=== PATIENT | female | born 1990 | race Caucasian/White ===

== ENCOUNTER 2018-07-02 07:30 | Inpatient (IN) | payer MEDICAID ==
[2018-07-07] MEDS ORDERED: cefOXitin 2 GM Vial ONE (06:49)
[2018-07-07] MEDS ORDERED: Neostigmine Methylsulfate 1 MG/ML 5 ML Syringe ONE (07:17)
[2018-07-07] MEDS ORDERED: Glycopyrrolate 0.2 MG/ML 5 ML MDV ONE (07:17)
[2018-07-07] MEDS ORDERED: Dexamethasone 4 MG/ML SDV ONE (07:17)
[2018-07-07] MEDS ORDERED: Propofol 200 MG/20 ML SDV ONE (07:17)
[2018-07-07] MEDS ORDERED: Succinylcholine 200 MG/10 ML MDV ONE (07:17)
[2018-07-07] MEDS ORDERED: Rocuronium 50 MG/5 ML Vial ONE (07:17)
[2018-07-07] MEDS ORDERED: Ondansetron 4 MG/2 ML SDV ONE (07:17)
[2018-07-07] MEDS ORDERED: Acetaminophen 500 MG Tab PO ONE (07:30)
[2018-07-07] MEDS ORDERED: Gabapentin 300 MG Cap PO ONE (07:30)
[2018-07-07] MEDS ORDERED: Celecoxib 200 MG Cap PO ONE (07:30)
[2018-07-07] MEDS ORDERED: Scopolamine 1.5 MG Transdermal Patch TOP ONE (08:00)
[2018-07-07] MEDS ORDERED: Dextrose 5%-Lactated Ringers 1,000 ML IV SCH (08:00)
[2018-07-07] MEDS ORDERED: Albuterol/Ipratropium 3.0-0.5 MG/3 ML Neb Soln NEB ONE (09:00)
[2018-07-07] MEDS ORDERED: Lidocaine 2% 100 MG/5 ML Syringe IVPUSH ONE (09:00)
[2018-07-07] MEDS ORDERED: Lidocaine 0.4%/D5W 2 GM/500 ML BAG IV SCH (09:15)
[2018-07-07] MEDS ORDERED: Ketamine 500 MG/5 ML MDV IV SCH (09:15)
[2018-07-07] MEDS ORDERED: Ropivacaine 60 ML, Dexamethasone 8 MG, EPINEPHrine 0.4 MG, Sodium Chloride 0.9% 17.6 ML NERVRT SCH ×4 (09:15)
[2018-07-07] MEDS ORDERED: Ketamine 50 MG in Sodium Chloride 0.9% 49.5 ML IV SCH (09:15)
[2018-07-07] MEDS: cefOXitin 2 GM in Sodium Chloride 0.9% 50 ML IV ONE ×2 (09:53→12:43)
[2018-07-07] MEDS ORDERED: fentaNYL 250 MCG/5 ML SDV ONE (09:57)
[2018-07-07] MEDS ORDERED: Labetalol 20 MG/4 ML Syringe ONE (10:17)
[2018-07-07 11:16] LABS: HEMOGLOBIN A1C 8.3 % (4.5-6.2)
[2018-07-07] MEDS ORDERED: Insulin Lispro 100 Unit/ML 3 ML KwikPen SUBCUT ONE (12:00)
[2018-07-07] MEDS ORDERED: hydrOXYzine HCl 100 MG/2 ML SDV IM ONE (12:05)
[2018-07-07] MEDS: Dextrose 5%-Lactated Ringers 1,000 ML IV SCH ×2 (12:25→15:48)
[2018-07-07] MEDS ORDERED: Glucagon,Human Recombinant 1 MG Vial IM PRN (12:55)
[2018-07-07] MEDS ORDERED: Albuterol/Ipratropium 3.0-0.5 MG/3 ML Neb Soln INH PRN (12:55)
[2018-07-07] MEDS ORDERED: Metoclopramide 10 MG/2 ML SDV IVPUSH PRN (12:55)
[2018-07-07] MEDS ORDERED: diphenhydrAMINE 50 MG/ML SDV IVPUSH PRN (12:55)
[2018-07-07] MEDS ORDERED: Labetalol 20 MG/4 ML Syringe IVPUSH PRN (12:55)
[2018-07-07] MEDS ORDERED: 50% Dextrose in Water 50 ML Syringe IVPUSH PRN (12:55)
[2018-07-07] MEDS ORDERED: Ondansetron 4 MG/2 ML SDV IVPUSH PRN (12:55)
[2018-07-07] MEDS: hydrOXYzine HCl 100 MG/2 ML SDV IM PRN (13:08)
[2018-07-07] MEDS: Lactated Ringers 1,000 ML IV SCH (13:15)
[2018-07-07] MEDS: Acetaminophen Soln 650 MG/20.3 ML UD Cup PO SCH ×2 (14:05→19:31)
[2018-07-07] MEDS: Pantoprazole 40 MG Vial IVPUSH SCH (14:11)
[2018-07-07] MEDS: Gabapentin 250 MG/5 ML Solution ML 470 ML Bottle PO SCH ×2 (14:20→21:04)
[2018-07-07] MEDS: Albuterol/Ipratropium 3.0-0.5 MG/3 ML Neb Soln INH SCH ×2 (14:22→21:04)
[2018-07-07] MEDS: MVI, Adult with Vitamin K 10 ML, Thiamine 200 MG, Chromium/Copper/Mang/Selen/Zn 1 ML in... IV SCH ×4 (15:47)
[2018-07-07] MEDS: cefOXitin 2 GM in Sodium Chloride 0.9% 50 ML IV SCH ×2 (15:48→21:04)
[2018-07-07] MEDS: Insulin Lispro 100 Unit/ML 3 ML KwikPen SUBCUT PRN ×2 (16:15→21:08)
[2018-07-07] MEDS: Heparin Sodium 5,000 Units/ML Vial SUBCUT SCH (17:23)
[2018-07-07] MEDS ORDERED: Insulin Glargine,Human Rec. Analog 100 Units/ML 3 ML Pen SUBCUT ONE (21:00)
[2018-07-08] MEDS: Acetaminophen Soln 650 MG/20.3 ML UD Cup PO SCH ×4 (01:00→21:05)
[2018-07-08] MEDS ORDERED: Iohexol 647 MG/ML 50 ML SDV PO STA (03:00)
[2018-07-08] MEDS: cefOXitin 2 GM in Sodium Chloride 0.9% 50 ML IV SCH ×2 (04:03→10:00)
[2018-07-08] MEDS: Lactated Ringers 1,000 ML IV SCH (04:05)
--- NOTE | 2018-07-08 04:22 | CRLCR ---
INDICATION: Post op Tacos en Y gastric bypass TECHNIQUE: Modified upper GI 4 views PRELIMINARY IMPRESSION: 1. Contrast is seen in the distal esophagus and proximal small bowel with no definite contrast extravasation seen on submitted images. 2. Surgical drain is noted in the left upper quadrant. Dictated by Zuhair Maher MD @ 07/08/2018 4:21:03 AM FINAL REPORT: Agree with preliminary report. No additional findings. Dictated by: Marco Degroot MD @ 07/14/2018 10:07:22 (Electronically Signed)
[2018-07-08] MEDS: Insulin Lispro 100 Unit/ML 3 ML KwikPen SUBCUT PRN (05:18)
[2018-07-08] MEDS: Heparin Sodium 5,000 Units/ML Vial SUBCUT SCH ×2 (05:19→18:13)
[2018-07-08] MEDS: HYDROmorphone 2 MG Tab PO PRN ×5 (06:27→21:04)
[2018-07-08] MEDS: hydrOXYzine HCl 100 MG/2 ML SDV IM PRN (06:37)
[2018-07-08] MEDS ORDERED: hydrOXYzine HCl 25 MG Tab PO PRN (06:51)
[2018-07-08] MEDS ORDERED: Albuterol 8 GM Inhaler INH PRN (06:54)
[2018-07-08] MEDS ORDERED: Ondansetron 4 MG Tab.DIS PO PRN (06:54)
[2018-07-08] MEDS ORDERED: ALPRAZolam 0.5 MG Tab PO PRN (06:54)
[2018-07-08] MEDS ORDERED: Lactated Ringers 1,000 ML IV SCH (07:00)
[2018-07-08] MEDS ORDERED: Non-Formulary Medication 1 Each (Etonogestrel [Nexplanon] 68 MG) SQ SCH (07:00)
[2018-07-08] MEDS: Albuterol/Ipratropium 3.0-0.5 MG/3 ML Neb Soln INH SCH ×4 (07:29→21:06)
--- NOTE | 2018-07-08 08:10 | PN ---
DATE OF SERVICE: 07/08/2018 SUBJECTIVE: Marquita is postop day #1. Her upper GI this morning was normal. Blood sugars have been 233, 236, and 200; on oral intake, 270. Urine output 3300. She has been quite sleepy. Pain has not been managed. She would report pain, but then would fall right back to sleep. Currently, she just returned from the bathroom and is in quite a bit of pain. Remainder review of systems negative for any pertinent positives and negatives. OBJECTIVE: GENERAL: Marquita Whelan is a 28-year-old female. She is alert, orientated. VITAL SIGNS: TPR 97, 95, 20, blood pressure 122/73. HEENT: Negative. NECK: Supple. HEART: Regular rate and rhythm. LUNGS: Clear. ABDOMEN: Dressings dry and intact. ELIZABETH drain is draining a light pink clear drainage, 70 mL over the past 24 hours. EXTREMITIES: SCDs currently off. No peripheral edema. 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 Date of surgery, 07/07/2018. PLAN: 1. Step 2 gastric bypass diet without cereal. 2. Discontinue lidocaine. 3. Change IV to D5 LR at 100 mL/hour. 4. Discontinue D5 LR. 5. Lantus 10 units subcu b.i.d. 6. Atarax 25 mg p.o. q.4 hours p.r.n. pain. 7. Communication order, 3 med cups per hour, 1 every 20 minutes, record at bedside. 8. Work on good pulmonary function with incentive spirometer. 9. Zofran 4 mg ODT q.4 hours p.r.n. nausea, may have Dilaudid 2 mg 1 every 3 hours for severe pain, now covered with energy protocol medications including Atarax. 10.Home medications were started. Albuterol 1 puff inhalation daily p.r.n. shortness of breath, Xanax 1 mg p.o. b.i.d. p.r.n. anxiety, Abilify 10 mg p.o. daily, Adderall 20 mg p.o. t.i.d., Nexplanon. 11.We will evaluate p.r.n. Hina Norby, PA-C /[id number]
[2018-07-08] MEDS: Celecoxib 200 MG Cap PO SCH (08:32)
[2018-07-08] MEDS: Insulin Glargine,Human Rec. Analog 100 Units/ML 3 ML Pen SUBCUT SCH ×2 (08:34→21:07)
[2018-07-08] MEDS: Amphetamine/Dextroamphetamine Salts 10 MG Tab PO SCH ×3 (08:48→16:46)
[2018-07-08] MEDS: Gabapentin 250 MG/5 ML Solution ML 470 ML Bottle PO SCH ×3 (08:49→21:17)
[2018-07-08] MEDS ORDERED: ARIPiprazole 10 MG Tab PO SCH (09:00)
[2018-07-08] MEDS ORDERED: Venlafaxine 75 MG Cap.ER PO SCH (09:00)
[2018-07-08] MEDS: SCOPOLAMINE PATCH CHECK TOP SCH (09:52)
[2018-07-08] MEDS: Pantoprazole 40 MG Vial IVPUSH SCH (13:23)
[2018-07-08] MEDS: MVI, Adult with Vitamin K 10 ML, Thiamine 200 MG, Chromium/Copper/Mang/Selen/Zn 1 ML in... IV SCH ×4 (16:46)
[2018-07-08] MEDS: ARIPiprazole 10 MG Tab PO SCH (21:06)
[2018-07-08] MEDS: Venlafaxine 75 MG Cap.ER PO SCH (21:06)
[2018-07-09] MEDS: HYDROmorphone 2 MG Tab PO PRN ×5 (02:44→23:45)
[2018-07-09] MEDS: Acetaminophen Soln 650 MG/20.3 ML UD Cup PO SCH ×4 (02:44→20:04)
[2018-07-09] MEDS: Heparin Sodium 5,000 Units/ML Vial SUBCUT SCH ×2 (05:53→17:49)
[2018-07-09] MEDS: Albuterol/Ipratropium 3.0-0.5 MG/3 ML Neb Soln INH SCH ×4 (07:09→20:05)
[2018-07-09] MEDS ORDERED: Calcium Carbonate 500 MG Tab.Chew PO PRN (07:16)
[2018-07-09] MEDS: Amphetamine/Dextroamphetamine Salts 10 MG Tab PO SCH ×3 (08:01→16:24)
[2018-07-09] MEDS: Pantoprazole 40 MG Tab.CR PO SCH (08:02)
--- NOTE | 2018-07-09 08:26 | PN ---
DATE OF SERVICE: 07/09/2018 SUBJECTIVE: Marquita's blood sugars had been 116 and 98. She states that she took Celebrex yesterday morning and had some mid epigastric pain for a couple hours afterwards. She states that she was sitting in the chair for 2 hours after she took the Celebrex. Oral intake 1500. Urine output is 1550. ELIZABETH drain put out 112 mL of a light red drainage. REVIEW OF SYSTEMS: Remainder of review of systems negative for any pertinent positives and negatives. OBJECTIVE: GENERAL: Marquita is a 28-year-old female. VITAL SIGNS: TPR is 98.4, 69, and 16. Blood pressure 98/43. HEENT: Negative. NECK: Supple. HEART: Regular rate and rhythm. LUNGS: Clear. ABDOMEN: Incisions look good. Sutures intact. ELIZABETH drain intact, draining as light pink drainage. Abdominal binder has been on. EXTREMITIES: Without peripheral edema. ASSESSMENT: Laparoscopic gastric bypass surgery, liver biopsy, repair of diaphragmatic hernia, excision of mediastinal lipoma and partial gastrectomy for morbid obesity, hepatomegaly, diaphragmatic hernia, mediastinal lipoma, excision of ischemic stomach after formation of the gastric pouch. Date of surgery 07/07/2018. PLAN: 1. Discontinue Lantus. 2. Saline lock IV. 3. Discontinue IV Protonix. 4. Protonix 40 mg p.o. give before Celebrex and give Celebrex with food. 5. Good pulmonary toilet. 6. We will evaluate p.r.n. or in a.m. Hina Carrion PA-C /[id number]
[2018-07-09] MEDS ORDERED: Cyanocobalamin (Vitamin B12) 1,000 MCG/ML SDV IM ONE (09:00)
[2018-07-09] MEDS: SCOPOLAMINE PATCH CHECK TOP SCH (10:03)
[2018-07-09] MEDS: Celecoxib 200 MG Cap PO SCH (10:04)
[2018-07-09] MEDS: Gabapentin 250 MG/5 ML Solution ML 470 ML Bottle PO SCH ×3 (10:13→20:07)
[2018-07-09] MEDS: ARIPiprazole 10 MG Tab PO SCH (20:05)
[2018-07-09] MEDS: Venlafaxine 75 MG Cap.ER PO SCH (20:05)
[2018-07-10] MEDS: Acetaminophen Soln 650 MG/20.3 ML UD Cup PO SCH ×2 (03:35→08:29)
[2018-07-10] MEDS: HYDROmorphone 2 MG Tab PO PRN (03:35)
[2018-07-10] MEDS: Heparin Sodium 5,000 Units/ML Vial SUBCUT SCH (05:53)
[2018-07-10] MEDS: Albuterol/Ipratropium 3.0-0.5 MG/3 ML Neb Soln INH SCH (07:29)
[2018-07-10] MEDS: Pantoprazole 40 MG Tab.CR PO SCH (08:28)
[2018-07-10] MEDS: Amphetamine/Dextroamphetamine Salts 10 MG Tab PO SCH (08:28)
[2018-07-10] MEDS: Celecoxib 200 MG Cap PO SCH (08:29)
[2018-07-10] MEDS: Gabapentin 250 MG/5 ML Solution ML 470 ML Bottle PO SCH (09:06)
--- NOTE | 2018-07-10 09:41 | DISCH ---
ADMISSION DIAGNOSES: Morbid obesity, BMI 49; uncontrolled type 2 diabetes; attention deficit disorder; bipolar I; history of nicotine addiction recently quit; polycystic ovary syndrome; post-traumatic stress disorder; and marijuana use in remission. DISCHARGE DIAGNOSES: Laparoscopic gastric bypass surgery; liver biopsy; repair of diaphragmatic hernia; excision of mediastinal lipoma and partial gastrectomy for morbid obesity, hepatomegaly, diaphragmatic hernia, mediastinal lipoma, excision of ischemic stomach, over-formation of gastric pouch. Date of surgery, 07/07/2018. HISTORY: Marquita Whelan is a 28-year-old female with longstanding history of morbid obesity and increasing comorbidities. After preoperative evaluation and discussion of possible risks and possible complications, she wished to proceed with surgical procedure. HOSPITAL COURSE: Marquita had her surgery on 07/07/2018. She had no operative complications. On postoperative day #1, her upper GI was normal. She was started on a step- 2 gastric bypass diet without cereal. She was given Lantus 10 units subcu b.i.d. and started on Januvia for her diabetes. On postoperative day #2, her blood sugars decreased. Her Lantus was discontinued. She continued on Januvia. She was refused to take the Celebrex. She took at 1 time and states that it gave her heartburn and refused to take it even with the omeprazole. On postoperative day 3, she was ready to be discharged to home. Her last blood sugar 98, 100, and 104. She received dietary instructions. Activity was good. Oral intake 890 and urine output was 1700. ELIZABETH drains put out 150 mL for past 24 hours of a light pink serosanguineous drainage. PHYSICAL EXAMINATION: HEENT: Negative. NECK: Supple. HEART: Regular rate and rhythm. LUNGS: Clear. ABDOMEN: Sutures intact. Incisions look good. ELIZABETH drain at time of rounds was in place, but will be removed prior to discharge. Abdominal binder is currently off. EXTREMITIES: Without peripheral edema. DISPOSITION: Discharged to home. CONDITION: Stable and improving. FOLLOWUP APPOINTMENT: Hina Carrion PA-C, 07/17/2018 at 10:00 a.m. HOME MEDICATIONS: 1. Tylenol 650 mg oral q.6 hours for pain. 2. Zofran ODT 4 mg q.4 hours p.r.n. nausea. 3. Xanax 1 mg b.i.d. for anxiety. 4. Abilify 10 mg oral daily. 5. Ventolin inhaler 1 puff daily p.r.n. allergies. 6. Celebrex 200 mg daily. 7. Adderall 20 for 14 days. She had this prescription prior to surgery. Recommend that she does take this medication and to take it with food and omeprazole. Adderall 20 mg p.o. t.i.d., she has Nexplanon, inhaler, and Zofran ODT 4 mg q.4 hours p.r.n. nausea, vomiting #30, Effexor XR 75 mg oral daily. Discontinue taking Basaglar insulin and Humalog insulin. DIET: Step 2 gastric bypass diet with no cereal until 07/22/2018. ACTIVITY: No lifting over 10 pounds for 2 weeks. Other activity, walk at least 6 times daily inside your home. Driving, do not drive for 1 week. Shower/bathing, may shower. DISCHARGE INSTRUCTIONS: Notify provider if any fever, increased pain, swelling, redness, drainage, nausea, or vomiting. Keep site clean and dry. Wear abdominal binder for 2 weeks and as tolerated. SPECIAL INSTRUCTIONS: 1. Check blood sugars 4 times a day and bring to clinic appointments. 2. Keep a record of what you are eating and drinking. 3. Use incentive spirometer 10 times every hour while awake. 4. Bring record of food diary and blood sugars to clinic appointment.
--- NOTE | 2018-07-13 15:12 | OR ---
DATE OF PROCEDURE: 07/07/2018 PREOPERATIVE DIAGNOSIS: Morbid obesity. POSTOPERATIVE DIAGNOSES: 1. Morbid obesity. 2. Marked hepatomegaly. 3. Paraesophageal diaphragmatic hernia. 4. Mediastinal lipoma. 5. Area of gastric ischemia, status post formation of gastric pouch. OPERATIVE PROCEDURES: 1. Laparoscopic Tacos-en-Y gastric bypass along with gastroenterostomy (45433). 2. Jonny-Cut needle liver biopsy (89173). 3. Repair of paraesophageal diaphragmatic hernia (00652). 4. Excision of mediastinal lipoma (15739). 5. Resection of ischemic portion of the stomach, status post formation of gastric pouch (88085). ANESTHESIA: General. HEAD LINEMAN: CESAR Higuera. INDICATIONS FOR PROCEDURE: This is a 28-year-old female presenting with longstanding morbid obesity and increasingly significant comorbidities. After preoperative evaluation and discussion, she wished to proceed with a gastric bypass procedure. Potential risks of the procedure including bleeding, infection, leaks from various GI tract closures, problems with bowel obstruction over time, as well as possibility of cardiopulmonary, septic, or hemorrhagic complications leading to were discussed, and the patient wishes to proceed. DETAILS OF PROCEDURE: The patient was taken to the operating room and placed in a supine position. After general endotracheal anesthesia was induced, she was converted to a lithotomy position. Stovall catheter was inserted along with gastrointestinal balloon catheter, and the abdomen prepped and draped. At 15 cm inferior and 5 cm left of xiphoid process, a transverse incision was made and the peritoneal cavity entered under direct vision with an Optiview trocar. The peritoneal cavity was inflated to 15 mmHg pressure with CO2. Laparoscope was re-inserted. No underlying trocar insertion site injuries were seen. Following this, 5 additional trocars were placed across the upper and mid abdomen. General exploration was undertaken. The patient was noted to have marked hepatomegaly with liver volume being roughly 2 to 3 times normal and grossly fatty infiltrated. Jonny-Cut needle biopsies were obtained from the left lobe of the liver. Minimal bleeding from the biopsy sites was controlled with electrocautery. The omentum was then divided in the midline up to the level of the transverse colon. This allowed identification of small bowel to ligament of Treitz. Small bowel was then traced out 200 cm distal to that point, where it was divided transversely with a PADMAJA stapler. The small bowel was then traced out an additional 200 cm, where the [id number] enteroenterostomy was accomplished with an internal firing of the Endo-PADMAJA 60 mm stapler. Common opening was then closed transversely with the same stapler and the angles anastomosed and mesenteric defect approximated with some 0 Ethibond stitch along with 4 mL of fibrin sealant. The divided end of the Tacos limb was then from the mesentery for a few centimeters, which allowed an antecolic position of the Tacos limb up to the level of the gastroesophageal junction without tension. The liver was then retracted anteriorly. The patient was noted to have a moderate-sized paraesophageal diaphragmatic hernia with prolapse of a portion of gastric fundus and some perigastric fat in a plane anterior to the course of the esophagus. This was reduced, and peritoneum overlying the hernia was divided and reflected downward. During the course of the dissection, a roughly ping-pong ball-sized mediastinal lipoma was encountered, which was then excised as well, to facilitate closure of the diaphragmatic hernia, which was then accomplished with 0 Ethibond sutures reinforced with PTFE pledgets. At this point, the gastrointestinal balloon catheter was inflated to 15 mL and pulled up snugly against the EG junction. The gastric wall over the apex balloon was then marked with electrocautery, and balloon catheter deflated and pulled up from the esophagus. The lesser omental tissue adjacent to the gastric cardia was then incised, allowing dissection behind the stomach at that level. Pouch formation was initiated with a transverse firing of the PADMAJA stapler at the level of the cauterized loretta on the gastric cardia. This was then completed with additional firings of the PADMAJA stapler up to and through the angle of His. Upon completion of the pouch, both staple lines were noted to be intact. Inspection of the gastric pouch at this point showed an area of ischemia in the distal aspect of the gastric pouch. This was felt to be best treated by initial resection, which was then accomplished with a PADMAJA stapler as well, and gastric specimen was then sent for histologic evaluation. The anvil of the 25 mm EEA stapler was then attached to a [place] sump-type tube. The latter was taken out through a small opening in the gastric pouch, allowing the anvil likewise to be pulled down to within the gastric pouch. The divided end of the Tacos limb was then opened, and the main body of the EEA stapler was passed several centimeters into the lumen of the small bowel, brought up the anvil and united with it, thus creating the gastrojejunostomy. Upon removal of the stapler, double donuts of mucosa were noted within it. The small bowel was closed off with a vascular staple line. Gastrojejunostomy was reinforced with some 3-0 Vicryl seromuscular stitch, along with fibrin sealant. Leak test was accomplished with injection of 120 mL of air in the gastric pouch while submerged in the cefoxitin-containing saline solution. No leaks were identified. Two Jorge-Joe drains were then placed adjacent to the gastrojejunostomy and taken out through subcostal trocar sites. With no further problems noted, trocars were removed and the peritoneal cavity deflated. The incision was closed with some 4-0 Vicryl skin stitch, which was also used to fix the drains. The patient was taken to the recovery room in satisfactory condition. There were no evident complications. Arcenio Ball MD /[id number]
== END 2018-07-10 10:30 | disposition home or self-care (01) | DRG 621 ==
LOC: EDSTATUS 07-07 07:30 → EEVIPCON 07-07 07:35 → JP.SDS 07-07 07:35 → JP.SDSSCHI 07-07 07:35 → JP.MS 07-07 11:20
PROVIDERS: ADMIT Surgery; ATTEND Surgery
PROC: 0D164ZA Bypass Stomach to Jejunum, Percutaneous Endoscopic Approach (ICD-10-PCS; principal; 2018-07-07)
PROC: 0FB24ZX Excision of Left Lobe Liver, Percutaneous Endoscopic Approach, Diagnostic (ICD-10-PCS; 2018-07-07)
PROC: 0BQT4ZZ Repair Diaphragm, Percutaneous Endoscopic Approach (ICD-10-PCS; 2018-07-07)
PROC: 0WBC4ZX Excision of Mediastinum, Percutaneous Endoscopic Approach, Diagnostic (ICD-10-PCS; 2018-07-07)
PROC: 0DB64ZX Excision of Stomach, Percutaneous Endoscopic Approach, Diagnostic (ICD-10-PCS; 2018-07-07)
DX: E66.01 Morbid (severe) obesity due to excess calories (principal); Z68.42 Body mass index [BMI] 45.0-49.9, adult; R16.0 Hepatomegaly, not elsewhere classified; D17.4 Benign lipomatous neoplasm of intrathoracic organs; K44.9 Diaphragmatic hernia without obstruction or gangrene; K31.89 Other diseases of stomach and duodenum; K76.0 Fatty (change of) liver, not elsewhere classified; E11.65 Type 2 diabetes mellitus with hyperglycemia; Z79.4 Long term (current) use of insulin; F98.8 Other specified behavioral and emotional disorders with onset usually occurring in childhood and adolescence; E28.2 Polycystic ovarian syndrome; F43.10 Post-traumatic stress disorder, unspecified; F31.9 Bipolar disorder, unspecified; Z88.8 Allergy status to other drugs, medicaments and biological substances
CPT/HCPCS: 36415; 74240; 80053; 82962; 83036; 83735; 84100; 85027; 86850; 86900; 86901; 88304; 88305; 88307; 88313; 94640; A9270-GY; C9113; J0171; J0330; J0694; J1100; J1644; J1815; J1815-GY; J2001; J2405; J2704; J2710; J2795; J3010; J3410; J3411; J3420; J3490; J7030; J7042; J7050; J7120; J7620-GY; Q9967

== ENCOUNTER 2018-07-11 14:26 | Emergency (ER) | payer MEDICAID ==
--- NOTE | 2018-07-11 15:43 | EDM.PDOC ---
ED HPI GENERAL MEDICAL PROBLEM - General Chief Complaint: Abdominal Pain Stated Complaint: ABDOMINAL PIN Time Seen by Provider: 07/11/18 15:00 - History of Present Illness INITIAL COMMENTS - FREE TEXT/NARRATIVE: 28 yo recently post op from recent david procedure who presents with abdominal pain Has been present around her incisions since surgery No radiation Reports apap not helping No fever Tolerating liquid diet Requesting stronger pain medication - Related Data Allergies Allergy/AdvReac Type Severity Reaction Status Date / Time metformin Allergy Other Verified 07/11/18 15:07 NSAIDS (Non-Steroidal Allergy Abdominal Verified 07/11/18 15:07 Anti-Inflamma Pain blue cheese Allergy Rash Uncoded 07/11/18 15:07 Home Meds: Home Meds ALPRAZolam [Xanax] 1 mg PO BID PRN 07/03/18 [History] ARIPiprazole [Abilify] 10 mg PO DAILY 07/03/18 [History] Dextroamphetamine/Amphetamine [Adderall 20 mg Tablet] 20 mg PO TID 07/03/18 [ History] Etonogestrel [Nexplanon] 68 mg SQ ASDIRECTED 07/03/18 [History] Albuterol [Ventolin HFA] 1 puff INH DAILY PRN 07/07/18 [History] Venlafaxine [Effexor XR] 75 mg PO DAILY 07/07/18 [History] Acetaminophen [Tylenol] 650 mg PO Q6H cup 07/10/18 [Rx] Ondansetron [Zofran ODT] 4 mg PO Q4H PRN #30 tab.dis 07/10/18 [Rx] oxyCODONE 5 mg PO ASDIRECTED #4 tab 07/11/18 [Rx] Past Medical History HEENT History: Reports: Allergic Rhinitis Respiratory History: Reports: Bronchitis, Recurrent Genitourinary History: Reports: UTI, Recurrent TOUCH UP EDGER History: Reports: Polycystic Ovaries Musculoskeletal History: Reports: Fracture Psychiatric History: Reports: ADHD, Anxiety, Bipolar, Depression Endocrine/Metabolic History: Reports: Diabetes, Type II, Obesity/BMI 30+ - Infectious Disease History Infectious Disease History: Reports: Chicken Pox - Past Surgical History HEENT Surgical History: Reports: Oral Surgery Respiratory Surgical History: Reports: None Female Surgical History: Reports: None Endocrine Surgical History: Reports: None Musculoskeletal Surgical History: Reports: None Social & Family History - Tobacco Use Smoking Status *Q: Never Smoker - Caffeine Use Caffeine Use: Reports: Coffee ED ROS GENERAL - Review of Systems Review Of Systems: See Below Constitutional: Reports: No Symptoms HEENT: Reports: No Symptoms Respiratory: Reports: No Symptoms Cardiovascular: Reports: No Symptoms Endocrine: Reports: No Symptoms GI/Abdominal: Reports: Abdominal Pain : Reports: No Symptoms Musculoskeletal: Reports: No Symptoms Skin: Reports: No Symptoms Neurological: Reports: No Symptoms Psychiatric: Reports: No Symptoms Hematologic/Lymphatic: Reports: No Symptoms Immunologic: Reports: No Symptoms ED EXAM, GI/ABD - Physical Exam Exam: See Below Exam Limited By: No Limitations General Appearance: Alert, No Apparent Distress Ears: Normal External Exam Nose: Normal Inspection Throat/Mouth: Normal Inspection Head: Atraumatic, Normocephalic Neck: Normal Inspection Respiratory/Chest: No Respiratory Distress, Lungs Clear Cardiovascular: Normal Peripheral Pulses GI/Abdominal Exam: Normal Bowel Sounds, Soft, Tender (tender around lap ports), Other (incisions well healing) Back Exam: Normal Inspection Extremities: Normal Inspection Neurological: Alert, Oriented Psychiatric: Normal Affect Skin Exam: Warm, Dry Course - Vital Signs Last Recorded V/S: Last Vital Signs Temp 36.6 C 07/11/18 15:12 Pulse 84 07/11/18 15:12 Resp 12 07/11/18 15:12 BP 144/73 H 07/11/18 15:12 Pulse Ox 97 07/11/18 15:12 - Orders/Labs/Meds Meds: Medications Discontinued Medications Generic Name Dose Route Start Last Admin Trade Name Tegan PRN Reason Stop Dose Admin Oxycodone HCl 5 mg 07/11/18 15:52 07/11/18 15:56 Oxycodone PO 07/11/18 15:53 5 mg ONETIME ONE Administration - Re-Assessments/Exams Free Text/Narrative Re-Assessment/Exam: 28 yo recent post op from lap david requesting oxycodone for incisional abdominal pain No new symptoms Only tender around lap sites, normal vitals Written for short script of oxycodone until she can f/u with surgeon this week 07/12/18 19:05 Departure - Departure Time of Disposition: 15:42 Disposition: Home, Self-Care 01 Clinical Impression: Epigastric pain - Discharge Information *PRESCRIPTION DRUG MONITORING PROGRAM REVIEWED*: No *COPY OF PRESCRIPTION DRUG MONITORING REPORT IN PATIENT CEFERINO: No Prescriptions: oxyCODONE 5 mg PO ASDIRECTED #4 tab Instructions: Abdominal Pain, Adult, [id number] Referrals: Tunde Granados MD [Primary Care Provider] - Forms: ED Department Discharge Additional Instructions: Please follow up with Dr Ball's office as planned, call sooner if you are having persistent pain
[2018-07-11] MEDS ORDERED: oxyCODONE 5 MG Tab PO ONE (15:52)
== END 2018-07-11 15:57 | disposition home or self-care (01) ==
LOC: JP.ED 14:26
DX: R10.13 Epigastric pain (principal); F32.9 Major depressive disorder, single episode, unspecified; E11.9 Type 2 diabetes mellitus without complications; Z79.899 Other long term (current) drug therapy; Z88.8 Allergy status to other drugs, medicaments and biological substances; Z91.018 Allergy to other foods
CPT/HCPCS: 99283; A9270

== ENCOUNTER 2018-07-17 18:40 | Inpatient (IN) | payer MEDICAID ==
[2018-07-17] MEDS ORDERED: fentaNYL 100 MCG/2 ML SDV IVPUSH ONE (19:21)
[2018-07-17] MEDS ORDERED: Ondansetron 4 MG/2 ML SDV IVPUSH ONE (19:22)
[2018-07-17] MEDS ORDERED: Sodium Chloride 0.9% 10 ML Syringe FLUSH PRN (19:22)
[2018-07-17] MEDS ORDERED: Lactated Ringers 1,000 ML IV ONE (19:22)
--- NOTE | 2018-07-17 19:35 | EDM.PDOC ---
ED HPI GENERAL MEDICAL PROBLEM - General Chief Complaint: Gastrointestinal Problem Stated Complaint: SURGERY ON THE 10TH RNY Time Seen by Provider: 07/17/18 19:15 Source of Information: Reports: Patient, RN Notes Reviewed History Limitations: Reports: No Limitations - History of Present Illness INITIAL COMMENTS - FREE TEXT/NARRATIVE: 28-year-old female presents emergency department today complaint of abdominal pain, she is postop day 20 from gastric bypass Tacos-en-Y states she is doing well postoperatively and then today sudden onset epigastric pain nausea and vomiting she's unable to keep any medications down or liquids, denies any fevers is still passing gas Abdominal Pain Score (Numeric/FACES): 8 - Related Data Allergies Allergy/AdvReac Type Severity Reaction Status Date / Time metformin Allergy Other Verified 07/17/18 18:57 NSAIDS (Non-Steroidal Allergy Abdominal Verified 07/17/18 18:57 Anti-Inflamma Pain blue cheese Allergy Rash Uncoded 07/17/18 18:57 Home Meds: Home Meds ALPRAZolam [Xanax] 1 mg PO BID PRN 07/03/18 [History] ARIPiprazole [Abilify] 10 mg PO DAILY 07/03/18 [History] Dextroamphetamine/Amphetamine [Adderall 20 mg Tablet] 20 mg PO TID 07/03/18 [ History] Etonogestrel [Nexplanon] 68 mg SQ ASDIRECTED 07/03/18 [History] Albuterol [Ventolin HFA] 1 puff INH DAILY PRN 07/07/18 [History] Venlafaxine [Effexor XR] 75 mg PO DAILY 07/07/18 [History] Acetaminophen [Tylenol] 650 mg PO Q6H cup 07/10/18 [Rx] Ondansetron [Zofran ODT] 4 mg PO Q4H PRN #30 tab.dis 07/10/18 [Rx] Past Medical History HEENT History: Reports: Allergic Rhinitis, Impaired Vision Respiratory History: Reports: Bronchitis, Recurrent Genitourinary History: Reports: UTI, Recurrent 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: 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 Musculoskeletal History: Reports: Fracture Neurological History: Reports: Seizure Psychiatric History: Reports: ADHD, Anxiety, Bipolar, Depression, Psych Hospitalization(s), PTSD, Suicide Attempt Endocrine/Metabolic History: Reports: Diabetes, Type II, Obesity/BMI 30+ - Infectious Disease History Infectious Disease History: Reports: Chicken Pox - Past Surgical History HEENT Surgical History: Reports: Oral Surgery Respiratory Surgical History: Reports: None GI Surgical History: Reports: Bariatric Procedure, Hernia Repair/Other Female Surgical History: Reports: None Endocrine Surgical History: Reports: None Musculoskeletal Surgical History: Reports: None Social & Family History - Tobacco Use Smoking Status *Q: Former Smoker Used Tobacco, but Quit: Yes Month/Year Tobacco Last Used: april 2018 - Caffeine Use Caffeine Use: Reports: None ED ROS GENERAL - Review of Systems Review Of Systems: See Below Constitutional: Denies: Fever, Chills HEENT: Reports: No Symptoms Respiratory: Reports: No Symptoms Cardiovascular: Reports: No Symptoms GI/Abdominal: Reports: Abdominal Pain, Flatus, Nausea, Vomiting. Denies: Constipation, Diarrhea : Reports: No Symptoms Musculoskeletal: Reports: No Symptoms Skin: Reports: No Symptoms Neurological: Reports: Paresthesia ED EXAM, GI/ABD - Physical Exam Exam: See Below Exam Limited By: No Limitations General Appearance: Alert, Mild Distress Head: Atraumatic, Normocephalic Neck: Normal Inspection, Supple, Non-Tender, Full Range of Motion Respiratory/Chest: No Respiratory Distress, Lungs Clear, Normal Breath Sounds, No Accessory Muscle Use Cardiovascular: Regular Rate, Rhythm, No Murmur GI/Abdominal Exam: Normal Bowel Sounds, Soft, No Distention, Tender (Epigastric region) Course - Vital Signs Last Recorded V/S: Last Vital Signs Temp 98.1 F 07/17/18 19:01 Pulse 85 07/17/18 19:01 Resp 18 07/17/18 19:01 BP 137/83 07/17/18 19:01 Pulse Ox 94 L 07/17/18 19:01 - Orders/Labs/Meds Orders: Active Orders 24 hr Category Date Time Status Peripheral IV Care [RC] . DIRECTED Care 07/17/18 19:22 Active Lactated Ringers [Ringers, Lactated] 1,000 ml Med 07/17/18 19:22 Active IV BOLUS Sodium Chloride 0.9% [Saline Flush] Med 07/17/18 19:22 Active 10 ml FLUSH ASDIRECTED PRN Peripheral IV Insertion Adult [OM.PC] Urgent Oth 07/17/18 19:22 Ordered Medication Orders Lactated Ringer's (Ringers, Lactated) 1,000 mls @ 999 mls/hr IV BOLUS ONE Stop: 07/17/18 20:22 Last Admin: 07/17/18 19:47 Dose: 999 mls/hr Sodium Chloride (Saline Flush) 10 ml FLUSH ASDIRECTED PRN PRN Reason: Keep Vein Open Last Admin: 07/17/18 19:47 Dose: 10 ml Labs: Laboratory Tests 07/17/18 07/17/18 07/17/18 Range/Units 19:22 19:22 19:22 WBC 7.6 (4.5-11.0) K/uL RBC 4.78 (3.30-5.50) M/uL Hgb 12.2 (12.0-15.0) g/dL Hct 38.5 (36.0-48.0) % MCV 81 (80-98) fL MCH 26 L (27-31) pg MCHC 32 (32-36) % Plt Count 197 (150-400) K/uL Neut % (Auto) 73 H (36-66) % Lymph % (Auto) 17 L (24-44) % [place] % (Auto) 10 H (2-6) % Eos % (Auto) 1 L (2-4) % Baso % (Auto) 0 (0-1) % Sodium 140 (140-148) mmol/L Potassium 4.0 (3.6-5.2) mmol/L Chloride 105 (100-108) mmol/L Carbon Dioxide 25 (21-32) mmol/L Anion Gap 10.5 (5.0-14.0) mmol/L BUN 10 (7-18) mg/dL Creatinine 0.9 (0.6-1.0) mg/dL Est Cr Clr Drug Dosing 98.12 mL/min Estimated GFR (MDRD) > 60 (>60) Glucose 141 H (74-106) mg/dL Lactic Acid 1.1 (0.4-2.0) mmol/L Calcium 9.1 (8.5-10.1) mg/dL Total Bilirubin 0.3 D (0.2-1.0) mg/dL AST 15 (15-37) U/L ALT 31 (12-78) U/L Alkaline Phosphatase 68 (46-116) U/L Total Protein 7.2 (6.4-8.2) g/dL Albumin 3.2 L (3.4-5.0) g/dL Globulin 4.0 H (2.3-3.5) g/dL Albumin/Globulin Ratio 0.8 L (1.2-2.2) Lipase 185 (73-393) U/L Urine Color Urine Appearance Urine pH (4.5-8.0) Ur Specific [place] (1.008-1.030) Urine Protein (NEGATIVE) mg/dL Urine Glucose (UA) (NEGATIVE) mg/dL Urine Ketones (NEGATIVE) mg/dL Urine Occult Blood (NEGATIVE) Urine Nitrite (NEGATIVE) Urine Bilirubin (NEGATIVE) Urine Urobilinogen (NORMAL) mg/dL Ur Leukocyte Esterase (NEGATIVE) Urine RBC (0-5) Urine WBC (0-5) Ur Epithelial Cells Amorphous Sediment Urine Bacteria Urine Mucus Urine HCG, Qual 07/17/18 07/17/18 Range/Units 19:51 19:51 WBC (4.5-11.0) K/uL RBC (3.30-5.50) M/uL Hgb (12.0-15.0) g/dL Hct (36.0-48.0) % MCV (80-98) fL MCH (27-31) pg MCHC (32-36) % Plt Count (150-400) K/uL Neut % (Auto) (36-66) % Lymph % (Auto) (24-44) % [place] % (Auto) (2-6) % Eos % (Auto) (2-4) % Baso % (Auto) (0-1) % Sodium (140-148) mmol/L Potassium (3.6-5.2) mmol/L Chloride (100-108) mmol/L Carbon Dioxide (21-32) mmol/L Anion Gap (5.0-14.0) mmol/L BUN (7-18) mg/dL Creatinine (0.6-1.0) mg/dL Est Cr Clr Drug Dosing mL/min Estimated GFR (MDRD) (>60) Glucose (74-106) mg/dL Lactic Acid (0.4-2.0) mmol/L Calcium (8.5-10.1) mg/dL Total Bilirubin (0.2-1.0) mg/dL AST (15-37) U/L ALT (12-78) U/L Alkaline Phosphatase (46-116) U/L Total Protein (6.4-8.2) g/dL Albumin (3.4-5.0) g/dL Globulin (2.3-3.5) g/dL Albumin/Globulin Ratio (1.2-2.2) Lipase (73-393) U/L Urine Color [place] Urine Appearance Slightly cloudy Urine pH 5.0 (4.5-8.0) Ur Specific [place] 1.020 (1.008-1.030) Urine Protein 30 H (NEGATIVE) mg/dL Urine Glucose (UA) Normal (NEGATIVE) mg/dL Urine Ketones 50 H (NEGATIVE) mg/dL Urine Occult Blood Moderate (NEGATIVE) Urine Nitrite Negative (NEGATIVE) Urine Bilirubin Negative (NEGATIVE) Urine Urobilinogen Normal (NORMAL) mg/dL Ur Leukocyte Esterase Negative (NEGATIVE) Urine RBC 10-20 H (0-5) Urine WBC 5-10 H (0-5) Ur Epithelial Cells Many Amorphous Sediment Few Urine Bacteria Few Urine Mucus Few Urine HCG, Qual Negative Meds: Medications Generic Name Dose Route Start Last Admin Trade Name Freq PRN Reason Stop Dose Admin Lactated Ringer's 1,000 mls @ 999 mls/hr 07/17/18 19:22 07/17/18 19:47 Ringers, Lactated IV 07/17/18 20:22 999 mls/hr BOLUS ONE Administration Sodium Chloride 10 ml 07/17/18 19:22 07/17/18 19:47 Saline Flush FLUSH 10 ml ASDIRECTED PRN Administration Keep Vein Open Discontinued Medications Generic Name Dose Route Start Last Admin Trade Name Freq PRN Reason Stop Dose Admin Fentanyl 50 mcg 07/17/18 19:21 07/17/18 19:47 Sublimaze IVPUSH 07/17/18 19:22 50 mcg ONETIME ONE Administration Ondansetron HCl 4 mg 07/17/18 19:22 07/17/18 19:47 Zofran IVPUSH 07/17/18 19:23 4 mg ONETIME ONE Administration Departure - Departure Time of Disposition: 20:17 Disposition: Refer to Observation Condition: Fair Clinical Impression: Epigastric pain - Discharge Information Referrals: Arcenio Ball MD [Primary Care Provider] - Forms: ED Department Discharge - My Orders Last 24 Hours: My Active Orders 07/17/18 19:22 Peripheral IV Care [RC] . DIRECTED Lactated Ringers [Ringers, Lactated] 1,000 ml IV BOLUS Sodium Chloride 0.9% [Saline Flush] 10 ml FLUSH ASDIRECTED PRN Peripheral IV Insertion Adult [OM.PC] Urgent - Assessment/Plan Last 24 Hours: My Active Orders 07/17/18 19:22 Peripheral IV Care [RC] . DIRECTED Lactated Ringers [Ringers, Lactated] 1,000 ml IV BOLUS Sodium Chloride 0.9% [Saline Flush] 10 ml FLUSH ASDIRECTED PRN Peripheral IV Insertion Adult [OM.PC] Urgent Plan: Assessment Acuity = acute Site and laterality = epigastric pain complicated patient who is 20 days postop gastric bypass Etiology = unknown etiology Manifestations = nausea vomiting Location of injury = Home Lab values = CBC, CMP unremarkable lactic acid is normal urinalysis reveals 10- 20 rbc's consistent hematuria and 5-10 wbc's consists with pyuria cultures pending Plan Called discussed case Dr. Ball at 2009 recommended admission plan for EGD with dilation in the morning hydration and pain control This note was dictated using [employer] voice recognition software please call with any questions on syntax or grammar.
[2018-07-17] MEDS ORDERED: Albuterol 8 GM Inhaler INH PRN (20:21)
[2018-07-17] MEDS ORDERED: fentaNYL 100 MCG/2 ML SDV IVPUSH PRN (20:21)
[2018-07-17] MEDS ORDERED: Lactated Ringers 1,000 ML IV SCH (20:30)
[2018-07-17] MEDS ORDERED: Non-Formulary Medication 1 Each (Etonogestrel [Nexplanon] 68 MG) SQ SCH (20:30)
[2018-07-17] MEDS: fentaNYL 100 MCG/2 ML SDV IVPUSH PRN (23:48)
[2018-07-17] MEDS: Ondansetron 4 MG/2 ML SDV IVPUSH PRN (23:53)
[2018-07-18] MEDS: fentaNYL 100 MCG/2 ML SDV IVPUSH PRN ×3 (04:05→13:52)
[2018-07-18] MEDS: Ondansetron 4 MG/2 ML SDV IVPUSH PRN ×4 (04:08→18:52)
[2018-07-18] MEDS ORDERED: Lactated Ringers 500 ML IV SCH (07:45)
[2018-07-18] MEDS ORDERED: ALPRAZolam 0.5 MG Tab PO PRN (08:34)
[2018-07-18] MEDS ORDERED: Albuterol 8 GM Inhaler INH PRN (08:37)
[2018-07-18] MEDS ORDERED: MVI, Adult with Vitamin K 10 ML, Chromium/Copper/Mang/Selen/Zn 1 ML, Thiamine 200 MG in... IV ONE ×8 (08:45→09:00)
[2018-07-18] MEDS ORDERED: Venlafaxine 75 MG Cap.ER PO SCH (09:00)
[2018-07-18] MEDS ORDERED: Midazolam 1 MG/ML 2 ML SDV ONE (09:28)
[2018-07-18] MEDS ORDERED: Propofol 200 MG/20 ML SDV ONE (09:28)
[2018-07-18] MEDS ORDERED: fentaNYL 100 MCG/2 ML SDV ONE (09:28)
[2018-07-18] MEDS ORDERED: Pantoprazole 40 MG Vial IV ONE (10:00)
[2018-07-18] MEDS ORDERED: Glycopyrrolate 0.2 MG/ML 2 ML SDV IVPUSH ONE (10:00)
[2018-07-18] MEDS: Amphetamine/Dextroamphetamine Salts 10 MG Tab PO SCH ×3 (13:54→20:25)
[2018-07-18] MEDS: ARIPiprazole 10 MG Tab PO SCH ×2 (13:54→20:25)
[2018-07-18] MEDS: Alum Hydrox/Mag Hydrox/Simeth 360 ML, Lidocaine 2% 60 ML PO SCH ×6 (14:18→20:24)
[2018-07-18] MEDS: HYDROmorphone 2 MG Tab PO PRN ×2 (18:51→22:53)
[2018-07-18] MEDS: Dextrose 5%-Lactated Ringers 1,000 ML IV SCH (19:43)
[2018-07-18] MEDS: Pantoprazole 40 MG Vial IV SCH (20:25)
[2018-07-19] MEDS: Dextrose 5%-Lactated Ringers 1,000 ML IV SCH ×3 (03:45→20:12)
[2018-07-19] MEDS: Alum Hydrox/Mag Hydrox/Simeth 360 ML, Lidocaine 2% 60 ML PO SCH ×8 (07:35→20:14)
[2018-07-19] MEDS: Amphetamine/Dextroamphetamine Salts 10 MG Tab PO SCH ×3 (08:13→15:28)
[2018-07-19] MEDS: Sucralfate 1 GM Tab PO SCH ×4 (08:14→20:16)
[2018-07-19] MEDS: Pantoprazole 40 MG Vial IV SCH ×2 (08:17→20:18)
--- NOTE | 2018-07-19 12:00 | PN ---
DATE OF SERVICE: 07/18/2018 The patient has been afebrile with stable vital signs overnight. She is status post a laparoscopic Tacos-en-Y gastric bypass in 06/2018, and developed onset of upper abdominal pain and dysphagia and inability to take much in the way of orally. Yesterday, afternoon, came to the emergency room. Clinically, she does not look like a leak in terms of no tachycardia, no fever, normal white count, and I suspect we are dealing with an early stricture or ulceration at the gastrojejunostomy. The plan will be to proceed with upper GI endoscopy later this morning. If this is completely unremarkable in terms of findings or if her clinical status deteriorates, at that point we would need to think in terms of getting a CT scan of the abdomen. We will add some vitamins and MVI to the next 2 L of IV fluid as well. Arcenio Ball MD /[id number]
--- NOTE | 2018-07-19 12:39 | PN ---
DATE OF SERVICE: 07/19/2018 The patient has been afebrile with stable vital signs. She complains of some epigastric discomfort. Oral intake was restarted to some extent, but probably would not be adequate to go home. We will add liquid Carafate to the Protonix and the xylocaine-Maalox mix today and encourage increased oral intake. She will likely be ready for discharge home tomorrow. Arcenio Ball MD /[id number]
[2018-07-19] MEDS ORDERED: ARIPiprazole 10 MG Tab PO SCH (21:00)
[2018-07-19] MEDS ORDERED: Venlafaxine 75 MG Cap.ER PO SCH (21:00)
[2018-07-20] MEDS: Dextrose 5%-Lactated Ringers 1,000 ML IV SCH (04:09)
[2018-07-20] MEDS: HYDROmorphone 2 MG Tab PO PRN (04:13)
[2018-07-20] MEDS: Sucralfate 1 GM Tab PO SCH (07:11)
[2018-07-20] MEDS: Alum Hydrox/Mag Hydrox/Simeth 360 ML, Lidocaine 2% 60 ML PO SCH ×2 (07:11)
--- NOTE | 2018-07-20 09:19 | DISCH ---
ADMISSION DIAGNOSES: 1. Dysphagia. 2. Status post Tacos-en-Y gastric bypass surgery. 3. Attention deficit disorder. 4. Post-traumatic stress disorder. 5. Bipolar I disorder. 6. Polycystic ovarian syndrome. 7. Morbid obesity, BMI 46. DISCHARGE DIAGNOSES: Upper gastrointestinal endoscopy with dilation of the gastrojejunostomy for moderate restriction and inflammation at the gastrojejunostomy. HISTORY: Marquita Whelan is a 28-year-old female who had Tacos-en-Y gastric bypass surgery approximately 10 days ago. She had a sudden onset of dysphagia and mid epigastric abdominal pain with vomiting. She went to the emergency room on 07/17/2018 and was admitted to the hospital. She had an upper GI endoscopy and a dilatation on 07/18/2018 and was given IV fluids. On 07/19/2018, she was started on oral Carafate as well as the Protonix. On 07/20/2018, she tolerated a step 2 gastric bypass diet. She had no further mid epigastric abdominal pain and was able to be discharged to home. PHYSICAL EXAMINATION: GENERAL: Marquita Whelan is a 28-year-old female. She is alert and orientated. SKIN: Warm and dry. Color is good. VITAL SIGNS: Height 5 feet 9 inches, weight is 313 pounds, BMI 46. TPR 98.6, 84, 16, blood pressure 157/76. HEENT: Negative. NECK: Supple. HEART: Regular rate and rhythm. LUNGS: Clear. ABDOMEN: Soft, nontender. EXTREMITIES: Without peripheral edema. Her main complaint this morning is right wrist pain. She is thinking she has carpal tunnel. Has an appointment with her primary care provider tomorrow. DISPOSITION: Discharged to home. CONDITION: Stable and improving. FOLLOWUP: Followup appointment with Hina Carrion PA-C on 08/05/2017 at 10 a.m. MEDICATIONS: 1. She is to continue the Magic mouthwash as directed 30 mL before meals and at bedtime p.r.n. pain. 2. Protonix 40 mg oral once daily #30. She is to resume home medications: 1. Xanax 1 mg oral twice daily. 2. Abilify 10 mg oral daily. 3. Tylenol 650 mg oral every 6 hours. 4. Ventolin 1 puff inhalation p.r.n. allergies with wheezing. 5. Adderall 20 mg 3 times daily. 6. Nexplanon, continue for 18 months. 7. Zofran ODT 4 mg every 4 hours p.r.n. nausea. 8. Effexor 75 mg oral daily. DIET: Step 2 gastric bypass diet with no cereal for 1 week. Start step 3, one new food daily at a time starting on Friday, July 27, 2018. ACTIVITY: As tolerated. May shower. DISCHARGE INSTRUCTIONS: Notify provider if any fever, increased pain, nausea, or vomiting. Continue to wear abdominal binder.
--- NOTE | 2018-07-23 09:19 | OR ---
DATE OF PROCEDURE: 07/18/2018 PREOPERATIVE DIAGNOSIS: Probable stricture at gastrojejunostomy. POSTOPERATIVE DIAGNOSIS: Probable stricture at gastrojejunostomy. OPERATIVE PROCEDURE: Upper GI endoscopy with dilation of gastrojejunostomy ([id number]). ANESTHESIA: IV sedation. INDICATIONS FOR PROCEDURE: This is a 28-year-old, roughly 20 days status post a laparoscopic Tacos-en-Y gastric bypass, presenting with dehydration and stricturing at her gastrojejunostomy. Plan is to proceed with an upper GI endoscopy with dilation as indicated. Potential risks including bleeding and perforation were discussed, and the patient wishes to proceed. DETAILS OF PROCEDURE: The patient was taken to the operating room, placed in a left lateral decubitus position. IV sedation was administered, after which the upper GI endoscope was passed orally through the length of the esophagus and into the area of the gastrojejunostomy. No retained food or fluid was noted. The narrowing appeared to be a combination of ongoing inflammation in terms of redness and edema, as well as some degree of stricturing. A Bard gastrointestinal balloon catheter was then centered across the anastomosis and inflated to 30-Georgian. This was held in position 1 minute, after which balloon catheter was deflated and withdrawn. Scope could easily then be passed through the anastomosis. No complications were noted. The patient was taken to the recovery room in satisfactory condition. There were no evident complications. Arcenio Ball MD /[id number]
== END 2018-07-20 09:15 | disposition home or self-care (01) | DRG 392 ==
LOC: JP.ED 18:40 → JP.MS 20:19 → OBSVTOIN 07-18 10:30
PROVIDERS: ADMIT Surgery; ATTEND Surgery
PROC: 0D7A8ZZ Dilation of Jejunum, Via Natural or Artificial Opening Endoscopic (ICD-10-PCS; principal; 2018-07-18)
PROC: 0D768ZZ Dilation of Stomach, Via Natural or Artificial Opening Endoscopic (ICD-10-PCS; 2018-07-18)
DX: R13.10 Dysphagia, unspecified (principal); K52.89 Other specified noninfective gastroenteritis and colitis; Z98.84 Bariatric surgery status; Z98.0 Intestinal bypass and anastomosis status; Z98.890 Other specified postprocedural states; F90.9 Attention-deficit hyperactivity disorder, unspecified type; F31.9 Bipolar disorder, unspecified; F43.10 Post-traumatic stress disorder, unspecified; E28.2 Polycystic ovarian syndrome; Z87.891 Personal history of nicotine dependence; H54.7 Unspecified visual loss; Z87.440 Personal history of urinary (tract) infections; Z91.018 Allergy to other foods; Z88.8 Allergy status to other drugs, medicaments and biological substances; Z86.39 Personal history of other endocrine, nutritional and metabolic disease; M25.531 Pain in right wrist
CPT/HCPCS: 36415; 80053; 81001; 81025; 83605; 83690; 85025; 87086; 96361; 96365; 96374; 96375; 96376; 99284-25; A9270-GY; C9113; G0378; J2250; J2405; J2704; J3010; J3411; J7042; J7120

== ENCOUNTER 2018-07-30 09:37 | Observation (INO) | payer MEDICAID ==
[2018-07-30] MEDS ORDERED: HYDROmorphone 0.5 MG/0.5 ML Syringe IVPUSH ONE ×2 (09:59→11:39)
[2018-07-30] MEDS ORDERED: Ondansetron 4 MG/2 ML SDV IVPUSH ONE (09:59)
[2018-07-30] MEDS: Sodium Chloride 0.9% 1,000 ML IV SCH ×4 (10:20→16:57)
--- NOTE | 2018-07-30 10:33 | EDM.PDOC ---
ED HPI GENERAL MEDICAL PROBLEM - General Chief Complaint: Abdominal Pain Stated Complaint: RNY 07/07/2018 Time Seen by Provider: 07/30/18 10:33 Source of Information: Reports: Patient History Limitations: Reports: No Limitations - History of Present Illness INITIAL COMMENTS - FREE TEXT/NARRATIVE: pt has been doing alot of vomiting in the past 2 days. She had severe pain in the epigastric area. She did need to be dilated ionce since her surgery. She is 3 weeks out from her RNY Onset: Gradual, Other ( last few days pt has had increased vomiting and pain in the epigastric area. ) Duration: Hour(s): Location: Reports: Abdomen Associated Symptoms: Reports: Nausea/Vomiting Upper Epigastric Pain Score (Numeric/FACES): 10 - Related Data Allergies Allergy/AdvReac Type Severity Reaction Status Date / Time metformin Allergy Other Verified 07/17/18 18:57 NSAIDS (Non-Steroidal Allergy Abdominal Verified 07/17/18 18:57 Anti-Inflamma Pain blue cheese Allergy Rash Uncoded 07/17/18 18:57 Home Meds: Home Meds ALPRAZolam [Xanax] 1 mg PO BID PRN 07/03/18 [History] ARIPiprazole [Abilify] 10 mg PO DAILY 07/03/18 [History] Dextroamphetamine/Amphetamine [Adderall 20 mg Tablet] 20 mg PO TID 07/03/18 [ History] Albuterol [Ventolin HFA] 1 puff INH DAILY PRN 07/07/18 [History] Venlafaxine [Effexor XR] 75 mg PO DAILY 07/07/18 [History] Acetaminophen [Tylenol] 650 mg PO Q6H cup 07/10/18 [Rx] Ondansetron [Zofran ODT] 4 mg PO Q4H PRN #30 tab.dis 07/10/18 [Rx] Alum Hydrox/Mag Hydrox/Simeth [Mag-Al Plus] 360 ml PO QIDACANDBED cup 07/20/18 [Rx] Pantoprazole Sodium [Protonix] 40 mg PO ACBREAKFAST #30 tablet. 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 Musculoskeletal History: Reports: Fracture Neurological History: Reports: Seizure Psychiatric History: Reports: ADHD, Anxiety, Bipolar, Depression, Psych Hospitalization(s), PTSD, Suicide Attempt Endocrine/Metabolic History: Reports: Diabetes, Type II, Obesity/BMI 30+ - Infectious Disease History Infectious Disease History: Reports: Chicken Pox - Past Surgical History HEENT Surgical History: Reports: Oral Surgery Respiratory Surgical History: Reports: None GI Surgical History: Reports: Bariatric Procedure, Hernia Repair/Other, Other ( See Below) Other GI Surgeries/Procedures: dilatation Female Surgical History: Reports: None Endocrine Surgical History: Reports: None Musculoskeletal Surgical History: Reports: None Social & Family History - Family History HEENT: Reports: None Cardiac: Reports: Afib Respiratory: Reports: COPD : Reports: UTI, Recurrent Musculoskeletal: Reports: Arthritis Psychiatric: Reports: Anxiety, Depression Endocrine/Metabolic: Reports: Diabetes, type II - Tobacco Use Smoking Status *Q: Never Smoker Second Hand Smoke Exposure: No - Caffeine Use Caffeine Use: Reports: None - Recreational Drug Use Recreational Drug Use: No ED ROS GENERAL - Review of Systems Review Of Systems: See Below Constitutional: Reports: No Symptoms HEENT: Reports: No Symptoms Respiratory: Reports: No Symptoms Cardiovascular: Reports: No Symptoms Endocrine: Reports: No Symptoms GI/Abdominal: Reports: Nausea, Vomiting : Reports: No Symptoms Musculoskeletal: Reports: No Symptoms Skin: Reports: No Symptoms ED EXAM, GI/ABD - Physical Exam Exam: See Below Text/Narrative:: pt arrived complaining of epigastric paind hving alot of vomiting. She is 3 weeks out from having a RNY Exam Limited By: No Limitations General Appearance: Alert, Anxious, Moderate Distress, Other (pupils are equal and reactive. ) Ears: Normal TMs Nose: Normal Inspection Throat/Mouth: Normal Inspection Head: Atraumatic Neck: Normal Inspection Respiratory/Chest: No Respiratory Distress Cardiovascular: Regular Rate, Rhythm GI/Abdominal Exam: Soft, Other (pt has tenderness in the epigastric area. There is no true guarding. ) (Female) Exam: Deferred Back Exam: Normal Inspection Extremities: Normal Inspection Neurological: Alert, Oriented, Normal Cognition Course - Vital Signs Last Recorded V/S: Last Vital Signs Temp 36.1 C 07/31/18 08:05 Pulse 57 L 07/31/18 10:50 Resp 18 07/31/18 10:50 BP 119/75 07/31/18 10:50 Pulse Ox 97 07/31/18 10:50 - Orders/Labs/Meds Labs: Laboratory Tests 07/30/18 07/30/18 Range/Units 10:06 10:06 WBC 5.0 (4.5-11.0) K/uL RBC 5.11 (3.30-5.50) M/uL Hgb 12.9 (12.0-15.0) g/dL Hct 42.4 (36.0-48.0) % MCV 83 (80-98) fL MCH 25 L (27-31) pg MCHC 30 L (32-36) % Plt Count 219 (150-400) K/uL Neut % (Auto) 61 (36-66) % Lymph % (Auto) 28 (24-44) % [place] % (Auto) 9 H (2-6) % Eos % (Auto) 2 (2-4) % Baso % (Auto) 0 (0-1) % Sodium 140 (140-148) mmol/L Potassium 3.9 (3.6-5.2) mmol/L Chloride 105 (100-108) mmol/L Carbon Dioxide 25 (21-32) mmol/L Anion Gap 10.2 (5.0-14.0) mmol/L BUN 11 (7-18) mg/dL Creatinine 0.8 (0.6-1.0) mg/dL Est Cr Clr Drug Dosing 110.39 mL/min Estimated GFR (MDRD) > 60 (>60) Glucose 134 H (74-106) mg/dL Calcium 9.2 (8.5-10.1) mg/dL Total Bilirubin 0.3 (0.2-1.0) mg/dL AST 29 D (15-37) U/L ALT 58 D (12-78) U/L Alkaline Phosphatase 77 (46-116) U/L Total Protein 7.1 (6.4-8.2) g/dL Albumin 3.5 (3.4-5.0) g/dL Globulin 3.6 H (2.3-3.5) g/dL Albumin/Globulin Ratio 1.0 L (1.2-2.2) Meds: Medications Discontinued Medications Generic Name Dose Route Start Last Admin Trade Name Freq PRN Reason Stop Dose Admin Al Hydroxide/Mg Hydroxide 360 0 ml 07/31/18 11:00 07/31/18 11:44 ml/ Lidocaine HCl 60 ml PO 1 each TIDAC GABRIEL Administration Fentanyl Confirm 07/31/18 06:57 Sublimaze Administered 07/31/18 06:58 Dose 100 mcg .ROUTE .STK-MED ONE Glycopyrrolate 0.4 mg 07/31/18 07:45 07/31/18 07:15 Glycopyrrolate IVPUSH 07/31/18 07:46 0.4 mg ONCALL ONE Administration Hydromorphone HCl 0.5 mg 07/30/18 09:59 07/30/18 10:22 Dilaudid IVPUSH 07/30/18 10:00 0.5 mg ONETIME ONE Administration Hydromorphone HCl 0.5 mg 07/30/18 11:39 07/30/18 11:49 Dilaudid IVPUSH 07/30/18 11:40 0.5 mg ONETIME ONE Administration Hydromorphone HCl 0 mg 07/30/18 13:09 07/30/18 13:28 Dilaudid Sander Portable Machine 15 Mg In Ns 30 Ml IV 15 mg ASDIRECTED PRN Administration WHEY DEPARTMENT OPERATOR PAIN CONTROL Protocol Sodium Chloride 1,000 mls @ 999 mls/hr 07/30/18 10:00 07/30/18 11:21 Normal Saline IV Infused ASDIRECTED GABRIEL Infusion Sodium Chloride 1,000 mls @ 999 mls/hr 07/30/18 11:30 07/30/18 11:23 Normal Saline IV 999 mls/hr ASDIRECTED GABRIEL Administration Sodium Chloride 1,000 mls @ 250 mls/hr 07/30/18 13:15 07/30/18 16:57 Normal Saline IV 250 mls/hr ASDIRECTED GBARIEL Administration Multivitamins/Minerals 10 ml/ 1,012 mls @ 250 mls/hr 07/30/18 18:16 07/30/18 18:43 Thiamine HCl 100 mg/ Chromium/ IV 07/30/18 22:18 250 mls/hr Copper/Manganese/Seleni/Zn 1 ONETIME ONE Administration ml/ Lactated Ringer's Dextrose/Lactated Ringer's 1,000 mls @ 100 mls/hr 07/30/18 20:17 07/31/18 07: 10 Dextrose 5%-Lactated Ringers IV 100 mls/hr ASDIRECTED GABRIEL Administration Midazolam HCl Confirm 07/31/18 06:58 Versed 1 Mg/Ml Administered 07/31/18 06:59 Dose 2 mg .ROUTE .STK-MED ONE Multivitamins/Minerals Confirm 07/30/18 18:35 07/30/18 18:44 Infuvite Adult Administered 07/30/18 18:36 Not Given Dose 10 ml IV .STK-MED ONE Naloxone HCl 0.1 mg 07/30/18 13:09 Narcan IV ASDIRECTED PRN decreased respiratory rate Ondansetron HCl 4 mg 07/30/18 09:59 07/30/18 10:21 Zofran IVPUSH 07/30/18 10:00 4 mg ONETIME ONE Administration Ondansetron HCl 4 mg 07/30/18 13:13 Zofran IVPUSH Q6H PRN Nausea Pantoprazole Sodium 40 mg 07/31/18 08:00 07/31/18 07:47 Protonix Iv IVPUSH 07/31/18 08:01 40 mg ONETIME ONE Administration Propofol Confirm 07/31/18 06:58 Diprivan 20 Ml Administered 07/31/18 06:59 Dose 200 mg .ROUTE .STK-MED ONE Thiamine HCl Confirm 07/30/18 18:34 07/30/18 18:44 Vitamin B-1 Administered 07/30/18 18:35 Not Given Dose 200 mg .ROUTE .STK-MED ONE - Re-Assessments/Exams Free Text/Narrative Re-Assessment/Exam: 07/30/18 11:47 pt is 3 weeks out from her RNY. She is doing alot of vomiting and she is having severe pain in the epigastric area. She is required dilaudid for pain. She was given 2 liters of normal saline. She will be dilated tomorrow. Departure - Departure Time of Disposition: 11:49 Disposition: Admitted As Inpatient 67 Condition: Fair Clinical Impression: Gastric anastomotic stricture, Gastric bypass status for obesity, Dehydration - Discharge Information
--- NOTE | 2018-07-30 11:12 | CRLCR ---
INDICATION: Epigastric pain COMPARISON: none TECHNIQUE: Two view abdomen and PA chest. FINDINGS: The lungs are clear. The heart and pulmonary vessels are normal in size. There is no evidence of pleural fluid. The bowel gas pattern appears normal. There is no evidence of free intraperitoneal air or soft tissue mass effect. There are no pathologic calcifications. IMPRESSION: Negative chest and abdomen. Dictated by Michael Ritter MD @ 07/30/2018 11:11:48 AM Dictated by: Michael Ritter MD @ 07/30/2018 11:11:59 (Electronically Signed)
[2018-07-30] MEDS ORDERED: Sodium Chloride 0.9% 1,000 ML IV SCH (11:30)
[2018-07-30] MEDS ORDERED: Naloxone 0.4 MG/ML SDV IV PRN (13:09)
[2018-07-30] MEDS ORDERED: HYDROmorphone/Normal Saline 15 MG/30 ML PCA IV PRN (13:09)
[2018-07-30] MEDS ORDERED: Ondansetron 4 MG/2 ML SDV IVPUSH PRN (13:13)
[2018-07-30] MEDS ORDERED: MVI, Adult with Vitamin K 10 ML, Thiamine 100 MG, Chromium/Copper/Mang/Selen/Zn 1 ML in... IV ONE ×4 (18:16)
[2018-07-30] MEDS ORDERED: Thiamine 200 MG/2 ML MDV ONE (18:34)
[2018-07-30] MEDS ORDERED: MVI, Adult with Vitamin K 10 ML SDV IV ONE (18:35)
[2018-07-30] MEDS ORDERED: Dextrose 5%-Lactated Ringers 1,000 ML IV SCH (20:17)
[2018-07-31] MEDS ORDERED: fentaNYL 100 MCG/2 ML SDV ONE (06:57)
[2018-07-31] MEDS ORDERED: Midazolam 1 MG/ML 2 ML SDV ONE (06:58)
[2018-07-31] MEDS ORDERED: Propofol 200 MG/20 ML SDV ONE (06:58)
[2018-07-31] MEDS ORDERED: Glycopyrrolate 0.2 MG/ML 2 ML SDV IVPUSH ONE (07:45)
[2018-07-31] MEDS ORDERED: Pantoprazole 40 MG Vial IVPUSH ONE (08:00)
[2018-07-31] MEDS: Alum Hydrox/Mag Hydrox/Simeth 360 ML, Lidocaine 2% 60 ML PO SCH ×4 (11:43→11:44)
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
--- NOTE | 2018-08-30 11:38 | OR ---
DATE OF PROCEDURE: 07/31/2018 PREOPERATIVE DIAGNOSIS: Probable stricture at gastrojejunostomy. 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 OPERATIVE PROCEDURE: Upper GI endoscopy with dilation of gastrojejunostomy (28470). ANESTHESIA: IV sedation. INDICATION FOR PROCEDURE: The patient was admitted overnight with epigastric pain, nausea, and probable stricturing at her gastrojejunostomy. 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 Plan is to proceed with an upper GI endoscopy with dilation as indicated. Potential risks including bleeding and perforation were discussed, and the patient wishes to proceed. DETAILS OF PROCEDURE: The patient was taken to the operating room and placed in the left lateral decubitus position. IV sedation was administered, after which the upper GI endoscope was passed orally through the length of the esophagus and into the gastric pouch. The patient was noted to have a moderate stricture with 1 cm scope not quite passing through the anastomosis. There was also quite a bit of some pouch gastritis. A Bard gastrointestinal catheter was centered across the anastomosis and inflated to 36-[place] size. This was held in position for 1 minute, after which the balloon catheter was deflated and withdrawn. The scope could easily then be passed through the anastomosis. No complications were noted and the patient was taken to the recovery room in satisfactory condition. There were no evident complications. Arcenio Ball MD /[id number]
--- NOTE | 2018-08-31 10:57 | DISCH ---
FINAL DIAGNOSIS: Stricturing and gastritis at gastrojejunostomy. POSTOPERATIVE DIAGNOSES: 1. Bariatric surgery status. 2. Dehydration. OPERATIVE PROCEDURE: Done on 07/31/2018, upper GI endoscopy with dilation of gastrojejunostomy. SUMMARY: This is a 28-year-old recently status post Tacos-en-Y gastric bypass, presenting with some nausea, epigastric pain, and emesis. She had previous stricture of gastrojejunostomy dilated and clinically was felt to have a recurrence. The patient was admitted with rehydration, vitamin administration, and underwent an upper endoscopy on 07/31/2018. This showed moderate stricture and some edema at the gastrojejunostomy related to pouch gastritis. Dilation was accomplished, and thereafter, the patient was able to resume satisfactory oral intake. She will be discharged home on a course of Protonix 40 mg a day, in addition to her other medications. Following up with Hina Carrion at [facility] in roughly 3 weeks.
== END 2018-07-31 13:28 | disposition home or self-care (01) ==
LOC: JP.ED 09:37 → JP.MS 12:18
PROVIDERS: ADMIT Surgery; ATTEND Surgery
DX: K22.2 Esophageal obstruction (principal); K29.70 Gastritis, unspecified, without bleeding; K31.4 Gastric diverticulum; F33.9 Major depressive disorder, recurrent, unspecified; F41.9 Anxiety disorder, unspecified; E66.9 Obesity, unspecified; Z68.44 Body mass index [BMI] 60.0-69.9, adult; E86.0 Dehydration; Z98.84 Bariatric surgery status; Z88.6 Allergy status to analgesic agent; Z88.8 Allergy status to other drugs, medicaments and biological substances; Z91.018 Allergy to other foods; Z79.51 Long term (current) use of inhaled steroids; Z79.899 Other long term (current) drug therapy; Z86.39 Personal history of other endocrine, nutritional and metabolic disease
CPT/HCPCS: 36415; 43245; 74022; 80053; 81001; 85025; 94762; 96361; 96365; 96366; 96375; 96376; 99285; A9270; C9113; G0378; J1170; J2250; J2405; J2704; J3010; J3411; J3490; J7030; J7042; J7120; 96374